=== PATIENT | male | born 1960 | race Caucasian/White ===

== ENCOUNTER 2020-02-27 16:07 | Emergency (ER) | payer BC, OTHER ==
[2020-02-27] MEDS ORDERED: Lidocaine 1% w/Epinephrine 1:100K 20 ML VIAL ONE (16:37)
[2020-02-27] MEDS ORDERED: Lidocaine 1% 20 ML MDV ONE (16:41)
[2020-02-27] MEDS ORDERED: Adacel (T-DAP) 0.5 ML SYRINGE ONE (17:15)
== END 2020-02-27 17:27 | disposition home or self-care (01) ==
LOC: MADERS 16:07
DX: S60.450A Superficial foreign body of right index finger, initial encounter (principal); K21.9 Gastro-esophageal reflux disease without esophagitis; F32.9 Major depressive disorder, single episode, unspecified; E78.5 Hyperlipidemia, unspecified; E78.00 Pure hypercholesterolemia, unspecified; N40.0 Benign prostatic hyperplasia without lower urinary tract symptoms; W45.8XXA Other foreign body or object entering through skin, initial encounter
CPT/HCPCS: 10120; 90471; 90715; J2001